=== PATIENT | female | born 1965 | race Caucasian/White ===

== ENCOUNTER 2023-09-01 02:53 | Emergency (ER) | payer BC, SELFPAY ==
[2023-09-01 03:00] VITALS: BP 117/96; PULSE 118; RESP 22; TEMP 36.6; O2SAT 100; BMI 27.4
--- NOTE | 2023-09-01 03:18 | ED_ITS ---
HPI - General Adult General Chief complaint: Shortness of Breath/Dyspnea Stated complaint: covid +, trouble breathing Time Seen by Provider: 09/01/23 03:02 Source: patient Mode of arrival: ambulatory Limitations: no limitations History of Present Illness HPI narrative: 58-year-old female presents to the emergency department for evaluation of worsening shortness of breath, weakness and vomiting in the setting of COVID. Patient reports that she initially became symptomatic achiness and cough with nausea 2 days ago. Positive COVID test, was given a prescription for Paxlovid yesterday that she has not yet started. She has not been able to hold down any nutrition today. Feels like she is getting weaker, starting to get confused. No hemoptysis, no productive cough. Does not think she has been running a fe tonny. She has had a single COVID vaccine and has had COVID once previously but no subsequent completion of the series or booster. No history of DVT or PE, no chest pain. Took Tylenol about 3 hours prior to arrival with no significant improvement in symptoms. No history of asthma or COPD. He is mostly concerned with feeling short of breath. Does not have a way to measure home oximetry. Does have a history of diabetes, has continued to take her medications, blood sugars running 120-125 today. No focal neurological changes, accompanied by significant other today. Past medical history notable for type 2 diabetes, hyperlipidemia. Home meds are metformin, Jardiance and atorvastatin. Nonsmoker. No pertinent travel. ROS is notable for the generalized, respiratory and GI symptoms as above. Also reports some sacroiliac area diffuse low back pain. Otherwise denies 12 system review of systems. Related Data Home Medications Medication Instructions Recorded Confirmed atorvastatin .ROUTE 09/01/23 empagliflozin .ROUTE 09/01/23 metformin 500 mg tablet 500 mg PO DAILY 09/01/23 09/01/23 Allergies Allergy/AdvReac Type Severity Reaction Status Date / Time No Known Drug Allergies Allergy Verified 09/01/23 03:03 [facility] Social History Smoking Status: Never smoker Non-prescribed substance use: denies use Exam Const: Vital Signs, click to edit/add: Vital Signs - 24 hr 09/01/23 03:00 09/01/23 03:20 09/01/23 04:35 Temperature 97.8 F 97.8 F Pulse Rate [Pulse Oximeter] 118 H 104 H Respiratory Rate 22 22 Blood Pressure [Ri ght Upper Arm] 117/96 H 126/65 Pulse Oximetry 100 100 100 Oxygen Delivery Me thod Room Air Room Air Documenting provider has reviewed patient's vital signs: yes Other: Retching, appears mildly ill. HENMT: Common normals: normocephalic Head and scalp: normocephalic Mouth: oral and palatal mucosa normal Throat: posterior oropharynx normal Eye: Common normals: conjunctivae normal General eye: normal appearance of both eyes Conjunctiva: conjunctiva(e) normal Neck & C-Spine: Common normals: full ROM and no lymphadenopathy Resp: Common normals: normal respiratory effort, no use of accessory muscles and clear to auscultation bilaterally Effort & inspection: able to speak in complete sentences Auscultation: clear to auscultation bilaterally Cardio: Common normals: regular rate, regular rhythm, S1 normal heart sound, S2 normal heart sound and no murmurs Rate: regular rate Rhythm: regular rhythm Heart sounds: S1 normal and S2 normal GI: Common normals: Normal to inspection, nondistended, normoactive bowel sounds present, soft to palpation, non-tender, no hepatosplenomegaly and no masses Palpation: soft and no hepatosplenomegaly : Common normals: no CVA tenderness Bladder/kidney exam: no CVA tenderness Back & Pelvis: Common normals: no CVA tenderness Other: No point bony tenderness of the lumbar spine. Mild SI and paraspinal muscle tenderness, nonfocal. Extremity: Common normals: normal to inspection and no pedal edema Other: Capillary refill is right around 2 seconds. Neuro: Speech: speech normal Motor exam: strength 5/5 throughout and no movement abnormalities noted Psych: Attitude: engaged Insight: insight good Judgement: judgment good Skin: Common normals: no rashes or lesions noted General skin exam: no rashes or lesions noted Course Course ED Course: Shortness of breath in the setting of COVID. Oxygen levels look good and there is no tachypnea. Breath sounds are nice and clear but I am concerned about the tachycardia. This could potentially be from cardiac process, pulmonary embolism or worsening respiratory process. The nausea vomiting does seem to be causing dehydration which could be contributing to tachycardia and overall weakness. I recommended placing an IV, basic labs including D-dimer, cardiac labs, electrolytes etc.. Will bolus 1 L of normal saline, give 4 mg of Zofran. No benefit to repeating her COVID test. No pulmonary findings. Will await D-dimer and determine if we should do a CT scan of the lungs rather than an x-ray. Will update patient once these findings are available Reevaluation(s) Time of Reevaluation #1: 04:11 Reevaluation #1: Patient feeling better after Zofran and 1 L of IV fluid. Labs suggestive of some lactic acidosis in the setting of use of metformin with acute illness and vomiting. I recommended a 2 L of IV fluid. D-dimer is somewhat elevated, recommend CT PA since she had sudden-onset shortness of breath, COVID and the lab findings. Await results. Time of Reevaluation #2: 05:48 Reevaluation #2: Review normal CT findings with patient. Discussed lactic acidosis, that severe dehydration and the pathophysiology that caused her subjective shortness of breath in the setting of her body's attempted electrolyte compensation. She is feeling much better. Because of electrolyte abnormalities, will finish 3 L of fluid, this time with lactated Ringer's to add some buffering. She is tolerating liquids with no difficulty now. I am confident that she can continue with this. I stressed the importance of her hold her metformin for the next 24 hours minimum. Instructions not to restart on Tuesday morning either unless she is eating and drinking well and continuing to feel improved. Drink lots of fluids today to help wash out the contrast in the setting of some early pre renal azotemia from her dehydration. She verbalizes understanding and agree ment. Discussed body aches, okay to use Tylenol and ibuprofen. Alarm symptoms reviewed that would warrant ED presentation. She verbalizes understanding and agreement. Vital Signs Vital signs: Initial Vital Signs Temperature 97.8 F 09/01/23 03:00 Temperature Source Temporal Artery Scan 09/01/23 03:00 Pulse Rate 118 H 09/01/23 03:00 Respiratory Rate 22 09/01/23 03:00 Blood Pressure 117/96 H 09/01/23 03:00 Blood Pressure Mean 103 09/01/23 03:00 Blood Pressure Position Sitting 09/01/23 03:00 Pulse Oximetry 100 09/01/23 03:00 Oxygen Delivery Method Room Air 09/01/23 03:00 Vital Signs Temperature 97.8 F 09/01/23 03:00 Pulse Rate 118 H 09/01/23 03:00 Respiratory Rate 22 09/01/23 03:00 Blood Pressure 117/96 H 09/01/23 03:00 Pulse Oximetry 100 09/01/23 03:00 Oxygen Delivery Method Room Air 09/01/23 03:00 Temperature 97.8 F 09/01/23 04:35 Pulse Rate 104 H 09/01/23 04:35 Respiratory Rate 22 09/01/23 04:35 Blood Pressure 126/65 09/01/23 04:35 Pulse Oximetry 100 09/01/23 04:35 Oxygen Delivery Method Room Air 09/01/23 04:35 Medications Administered Medications: Generic Name Dose Route Start Last Admin Trade Name Freq PRN Reason Stop Dose Admin Sodium Chloride 1,000 mls @ 1,000 mls/hr 09/01/23 03:16 09/01/23 04:00 0.9 % Sodium Chloride 1000 Ml IV 09/01/23 04:15 Infused .Q1H LISE Infusion Sodium Chloride 1,000 mls @ 1,000 mls/hr 09/01/23 03:56 09/01/23 05:18 0.9 % Sodium Chloride 1000 Ml IV 09/01/23 04:55 Infused .Q1H LISE Infusion Lactated Ringer's 1,000 mls @ 500 mls/hr 09/01/23 05:12 09/01/23 05:18 Lactated Ringers 1000 Ml IV 09/01/23 07:11 500 mls/hr .Q2H LISE Administration Ondansetron HCl 4 mg 09/01/23 03:15 09/01/23 03:22 Ondansetron 2 Mg/Ml Inj IVP 09/01/23 03:16 4 mg ONCE ONE Administration Medical Decision Making Lab Data Lab results reviewed: Yes I reviewed the patient's lab results Lab results narrative: Mild leukocytosis likely secondary to COVID. Mildly elevated D-dimer, could be suggestive of pulmonary embolism. Very low CO2 level with elevated lactate. In the setting of metformin use suspicious for lactic acidosis. Labs: Lab Results 09/01/23 Range/Units 03:20 WBC 11.21 H (4.50-11.00) K/uL RBC 5.37 H (4.00-5.20) m/uL Hgb 15.7 (12.0-16.0) gm/dL Hct 50.5 (33.0-51.0) % MCV 94 (80-100) fL MCH 29 (26-34) pg MCHC 31 L (32-36) gm/dL RDW Coeff of Corine 13.0 (11.5-15.5) % Plt Count 341 (140-440) K/uL Neut % (Auto) 78.5 H (42.0-72.0) % Lymph % (Auto) 15.2 L (20-44) % [place] % (Auto) 5.5 (0.0-11.0) % Eos % (Auto) 0.0 (0.0-7.0) % Baso % (Auto) 0.2 (0.0-3.0) % Neut # (Auto) 8.80 H (1.7-7.0) K/uL Lymph # (Auto) 1.70 (0.90-2.90) K/uL [place] # (Auto) 0.60 (0.00-0.90) K/UL Eos # (Auto) 0.00 (0.00-0.50) K/uL Baso # (Auto) 0.00 (0.00-0.30) K/uL Abs Immat Gran (auto) 0.10 (0.00-0.30) K/uL Imm/Tot Granulo (auto) 0.6 % D-Dimer Quant (PE/DVT) 0.92 H (0.00-0.50) ug/ml Sodium 135 (135-149) mmol/L Potassium 4.4 (3.6-5.1) mmol/L Chloride 102 (96-114) mmol/L Carbon Dioxide < 5 L* (20-32) mmol/L Anion Gap 28 H (7-15) mEq/L BUN 18 (7-30) mg/dL Creatinine 1.4 (0.5-1.5) mg/dL Estimated Creat Clear 35.49 Estimated GFR 44 ml/min Glucose 234 H (60-115) mg/dL Lactate 3.1 H (0.5-1.9) mmol/L Calcium 10.7 H (8.4-10.6) mg/dL Total Bilirubin 0.7 (0.1-1.5) mg/dL AST 27 (12-35) U/L ALT 24 (4-35) U/L Alkaline Phosphatase 110 (40-150) U/L C-Reactive Protein 4.6 H (0.5-1.0) mg/dL Total Protein 8.6 H (6.0-8.3) g/dL Albumin 5.2 H (3.3-5.0) g/dL Lipase 113 (23-300) U/L POC Troponin I 0.00 L (0.01-0.04) ng/ml Imaging Data CT scan - chest: Attestation: I have reviewed the pertinent imaging results. My impression: No infiltrates, no pulmonary embolism, no cardiac disease Radiologist's impression: IMPRESSION: 1. There is no indication of pulmonary embolus. 2. Lungs and pleural space appear normal. 3. Hiatal hernia and significant appearing thickening of the mid and distal 3rd of the esophagus. This is probably chronic reflux associated change though follow-up is recommended in the nonacute care setting ECG Data Attestation: I personally reviewed and interpreted this ECG as follows: Prior ECG tracings: not available for review Interpretation: Normal sinus rhythm. Normal axis. QRS is slightly prolonged with partial incomplete right bundle branch block. There are no features suggestive of ischemia however. Rate is around 105 at the time of EKG. No prior comparison available Discharge Plan Discharge Clinical Impression: Acute dehydration, COVID, Acute lactic acidosis Patient Disposition: Home w/ Parent or Adult Condition: Improved Instructions: Dehydration (ED) Additional Instructions: As we discussed, your shortness of breath was actually a process brought on by your body when it gets severely dehydrated. This is more common for someone on metformin. This shifts the dehydration into an electrolyte and acid-base problem. The solution is lots of fluids and then special electrolytes that help buffer the acid-base problem. The remainder of our workup did not show any other signs of severe infection, GI problems, blood clots or other significant abnormality. This is reassuring. I am glad that the Zofran also known as ondansetron medication was helpful for your nausea and vomiting. I will give you a prescription to continue this. You should take another dose at about 930 this morning. It is important that you do not take metformin for the next 24 hours. If you are feeling markedly better on Tuesday morning, you may restart the medication. If you are not markedly better, wait another 24 hours to restart. I would also like for you to hold her statin medication for a few days as well. As we discussed, I think the risk of Paxlovid outweighs the benefit for you. It will likely worsen dehydration, potential kidney issues and will cause more nausea. The benefit is small in your case and I think there is a larger potential for harm than help. I do not recommend that you start taking it. All of the fluids that you were given should help with most of your symptoms. The body aches and fatigue will take a few more days. If you start feeling severely short of breath, have persistent vomiting again, noticed decreased urination again or signs of other general worsening, please come back to the emergency room right away. Activity Level: Activity as Tolerated Discharge Diet: Regular Prescriptions: No Action metformin 500 mg tablet 500 mg PO DAILY empagliflozin [Jardiance] .ROUTE atorvastatin .ROUTE Follow Up/Referrals: Nalini Cobos MD [Primary Care Provider] - Stand Alone Forms: [employer] Info Instructions
[2023-09-01 03:20] VITALS: O2SAT 100
[2023-09-01] MEDS: ONDANSETRON 2 MG/ML inj 4 MG IVP (03:22)
[2023-09-01] MEDS: 0.9 % SODIUM CHLORIDE 1000 ml 1,000 ML IV ×2 (03:22→04:00)
[2023-09-01 03:27] LABS: Basophils Percent Auto 0.2 % (0.0-3.0); Hematocrit 50.5 % (33.0-51.0); Hemoglobin* 15.7 gm/dL (12.0-16.0); Immature Granulocytes Pct Auto 0.6 %; Lymphocytes Percent Auto 15.2 % (20-44); Mean Corpuscular HGB Conc 31 gm/dL (32-36); Mean Corpuscular Hemoglobin 29 pg (26-34); Mean Corpuscular Volume 94 fL (80-100); Monocytes Percent Auto 5.5 % (0.0-11.0); Neutrophils Percent Auto 78.5 % (42.0-72.0); Platelet Count* 341 K/uL (140-440); Red Blood Count 5.37 m/uL (4.00-5.20); White Blood Count* 11.21 K/uL (4.50-11.00)
[2023-09-01 03:34] LABS: Lactate* 3.1 mmol/L (0.5-1.9)
[2023-09-01 03:35] LABS: Slide Review Reflex No
[2023-09-01 03:47] LABS: Albumin* 5.2 g/dL (3.3-5.0); Chloride* 102 mmol/L (96-114); Potassium* 4.4 mmol/L (3.6-5.1); Sodium* 135 mmol/L (135-149)
[2023-09-01 03:49] LABS: Creatinine* 1.4 mg/dL (0.5-1.5); Est. Creatinine Clearance* 35.49; Estimated Glomerular Filt Rate 44 ml/min
[2023-09-01 03:50] LABS: Alanine Aminotransferase* 24 U/L (4-35); Alkaline Phosphatase* 110 U/L (40-150); Aspartate Amino Transferase* 27 U/L (12-35); Bilirubin Total* 0.7 mg/dL (0.1-1.5); Blood Urea Nitrogen* 18 mg/dL (7-30); Calcium* 10.7 mg/dL (8.4-10.6); Glucose* 234 mg/dL (60-115); Lipase* 113 U/L (23-300); Total Protein* 8.6 g/dL (6.0-8.3)
[2023-09-01 03:51] LABS: D Dimer Quantitative* 0.92 ug/ml (0.00-0.50)
[2023-09-01 03:53] LABS: C Reactive Protein* 4.6 mg/dL (0.5-1.0)
[2023-09-01 03:55] LABS: Anion Gap 28 mEq/L (7-15); Carbon Dioxide* < 5 mmol/L (20-32)
--- NOTE | 2023-09-01 03:57 | CRLHL7_ITS ---
For Patients: As a result of the Century Cures Act, medical imaging exams and procedure reports are released immediately into your electronic medical record. You may view this report before your referring provider. If you have questions, please contact your health care provider. INDICATION: Dyspnea. COVID. Positive D-dimer COMPARISON: None TECHNIQUE: : CT examination of the chest was performed with the uneventful intravenous administration of 95 cc of Isovue 370 while thin axial sections were obtained from above the apices of the lungs to the lung bases. Please note that all CT scans at this facility use dose modulation, iterative reconstruction, and/or weight-based dosing when appropriate to reduce radiation dose to as low as reasonably achievable. FINDINGS: : HEART and MEDIASTINUM: The heart size is normal. There is no mediastinal or hilar adenopathy or mass. There is no pericardial effusion. ESOPHAGUS: Hiatal hernia and significant appearing thickening the mid and distal 3rd of the esophagus. This is probably chronic reflux associated change but should be evaluated in the nonacute care setting PULMONARY ARTERIAL CIRCULATION: There is no visible intraluminal filling defect to suggest pulmonary embolus. LUNGS: The lungs show no focal consolidation or mass. The airways appear normal. PLEURAL SPACES: There is no pleural effusion, pneumothorax or pleural based mass. VISUALIZED UPPER ABDOMEN: Not well evaluated due to streak artifact and motion. OSSEOUS STRUCTURES: Age-appropriate appearance. No acute fracture or destructive process. TUBES and LINES: None. IMPRESSION: 1. There is no indication of pulmonary embolus. 2. Lungs and pleural space appear normal. 3. Hiatal hernia and significant appearing thickening of the mid and distal 3rd of the esophagus. This is probably chronic reflux associated change though follow-up is recommended in the nonacute care setting Please note that all CT scans at this facility use dose modulation, iterative reconstruction, and/or weight-based dosing when appropriate to reduce radiation dose to as low as reasonably achievable. Dictated by Ryan Mcneil MD @ 09/01/2023 5:36:33 AM (Electronically Signed)
[2023-09-01 04:35] VITALS: BP 126/65; PULSE 104; RESP 22; TEMP 36.6; O2SAT 100
[2023-09-01] MEDS: LACTATED RINGERS 1000 ML 1,000 ML 500 ML IV (05:18)
[2023-09-01 06:06] VITALS: BP 118/89; PULSE 108; RESP 18; O2SAT 100
== END 2023-09-01 06:33 | disposition home or self-care (01) ==
PROVIDERS: Emergency Provider Family Medicine; PCP Family Medicine
DX: U07.1 COVID-19 (principal); E87.21 Acute metabolic acidosis; E86.0 Dehydration
CPT/HCPCS: 36415; 71275; 80053; 83605; 83690; 84484; 85025; 85379; 86140; 93005; 94761; 95992; 96361; 96374; 99284; 99285; J2405; J7030; J7120; Q9967

== ENCOUNTER 2023-09-02 01:20 | Emergency (ER) | payer BC, SELFPAY ==
[2023-09-02 01:26] VITALS: BP 136/82; PULSE 104; RESP 26; TEMP 35.8; O2SAT 100; BMI 27.4
--- NOTE | 2023-09-02 01:36 | ED.GENADULT ---
HPI - General Adult General Chief complaint: Weakness Stated complaint: shortness of breath, dizzy Time Seen by Provider: 09/02/23 01:36 History of Present Illness HPI narrative: symptoms started Tuesday, was seen in ER yesterday with covid and dehydration. today feels worse, continues to feel very weak and fatigued with SOB. last had tylenol and zofran around 1999. has vomited 3X tonight. 58-year-old woman returning to the emergency department with diagnosis of COVID. Was seen yesterday. Second day of illness. Continues to feel weak. She has vomited 3 times this evening. Feels short of breath. In noted on triage is oxygenating 100% on room air. For abrupt dyspnea onset yesterday did receive a CTA chest. This was unremarkable. Diagnosed with lactic acidosis thought perpetuated by dehydration. Received IV hydration and told to hold metformin. Currently denies chest or abdominal pain. No dysuria. No fever. Says she would just like to fall asleep. Is not reporting any headache. Has been checking blood sugars regularly. Reports most recent and 120. Maintain that has been drinking well. Reports, verified with , having at least 80-100 oz of water today. Related Data Home Medications Medication Instructions Recorded Confirmed atorvastatin .Route 09/01/23 empagliflozin .Route 09/01/23 metformin 500 mg tablet 500 mg PO DAILY 09/01/23 09/02/23 Allergies Allergy/AdvReac Type Severity Reaction Status Date / Time No Known Drug Allergies Allergy Verified 09/01/23 03:03 Review of Systems Status of ROS: Reports: 6 or more systems reviewed and unremarkable except as noted in History and below PFSH PFS Social History Smoking Status: Never smoker Non-prescribed substance use: denies use Exam Narrative: Exam Narrative: Room smells quite ketotic. Breathless. Tachypneic. Labored. Seems anxious. Fatigued. Subtle slurring to her words. gcs 14. Cranial nerves 2-12 are intact. Pupils are 3 mm and equal and appropriately reactive. Moving all extremities without difficulty though does seem generally fatigued. She is able to move herself into a seated position. Lungs are clear. Heart is tachycardic in a regular rhythm. Abdomen is soft nontender. Skin with good turgor and without rash. She is well-perfused peripherally. Oropharynx is quite dry. Const: Vital Signs, click to edit/add: Vital Signs - 24 hr 09/02/23 01:26 09/02/23 01:48 09/02/23 02:53 Temperature 96.4 F L Pulse Rate [Pulse Oximeter] 104 H Respiratory Rate 26 H Blood Pressure [Ri ght Upper Arm] 136/82 136/74 Pulse Oximetry 100 100 Oxygen Delivery Me thod Room Air Room Air 09/02/23 03:55 09/02/23 05:22 09/02/23 06:00 Temperature 96.6 F L Pulse Rate [Pulse Oximeter] 96 Respiratory Rate 30 H 32 H Blood Pressure [Ri ght Upper Arm] 143/96 H Pulse Oximetry 100 Oxygen Delivery Me thod Room Air Documenting provider has reviewed patient's vital signs: yes Course Vital Signs Vital signs: Initial Vital Signs Temperature 96.4 F L 09/02/23 01:26 Temperature Source Temporal Artery Scan 09/02/23 01:26 Pulse Rate 104 H 09/02/23 01:26 Respiratory Rate 26 H 09/02/23 01:26 Blood Pressure 136/82 09/02/23 01:26 Blood Pressure Mean 100 09/02/23 01:26 Blood Pressure Position Sitting 09/02/23 01:26 Pulse Oximetry 100 09/02/23 01:26 Oxygen Delivery Method Room Air 09/02/23 01:26 Vital Signs Temperature 96.4 F L 09/02/23 01:26 Pulse Rate 104 H 09/02/23 01:26 Respiratory Rate 26 H 09/02/23 01:26 Blood Pressure 136/82 09/02/23 01:26 Pulse Oximetry 100 09/02/23 01:26 Oxygen Delivery Method Room Air 09/02/23 01:26 Temperature 96.6 F L 09/02/23 06:00 Pulse Rate 96 09/02/23 03:55 Respiratory Rate 32 H 09/02/23 05:22 Blood Pressure 143/96 H 09/02/23 03:55 Pulse Oximetry 100 09/02/23 03:55 Oxygen Delivery Method Room Air 09/02/23 03:55 Medications Administered Medications: Generic Name Dose Route Start Last Admin Trade Name Freq PRN Reason Stop Dose Admin Sodium Bicarbonate 125 meq/ 1,125 mls @ 150 mls/hr 09/02/23 06:15 09/02/23 06:45 Dextrose IV 150 mls/hr .[id number] LISE Administration Insulin Human (Reg)/Sodium Chloride 100 unit in 100 mls @ 6.5 mls/hr 09/02/23 06:45 09/02/23 07:08 Insulin Inf 100 Unit/100 Ml IVPB 6.5 unit/hr .[id number] LISE 6.5 mls/hr Administration Protocol 6.5 UNIT/HR Discontinued Medications Generic Name Dose Route Start Last Admin Trade Name [place] PRN Reason Stop Dose Admin Sodium Chloride 1,000 mls @ 1,000 mls/hr 09/02/23 01:48 09/02/23 03:40 0.9 % Sodium Chloride 1000 Ml IV 09/02/23 02:47 Infused .Q1H ONE Infusion Sodium Chloride 1,000 mls @ 1,000 mls/hr 09/02/23 02:57 09/02/23 03:41 0.9 % Sodium Chloride 1000 Ml IV 09/02/23 03:56 Infused .Q1H ONE Infusion Lactated Ringer's 1,000 mls @ 1,000 mls/hr 09/02/23 04:47 09/02/23 05:26 Lactated Ringers 1000 Ml IV 09/02/23 05:46 1,000 mls/hr .Q1H ONE Administration Lorazepam 0.5 mg 09/02/23 01:49 09/02/23 02:01 Lorazepam 2 Mg/Ml Inj IVP 09/02/23 01:50 0.5 mg ONCE ONE Administration Sodium Bicarbonate 50 meq 09/02/23 04:47 09/02/23 05:26 Sodium Bicarbonate 50 Meq/50ml Syringe IVP 09/02/23 04:48 50 meq ONCE ONE Administration Medical Decision Making MDM Narrative Medical decision making narrative: Will initiate IV hydration initially with normal saline. Surely is ketotic. Does have underlying diabetes. Look for infectious etiology here other than COVID. I would presume at this point is acidotic. White count is elevated since yesterday to little over 15,000. Lactate is improved. Venous blood gases obtained now today with a pH of 6.8 PCO to rather low at 17 anion gap. Will be checking blood cultures. Sepsis or bacteremia is certainly possible but unclear source. Does meet SIRS criteria. By my read chest x-ray was without evidence of infiltrate. No pneumothorax. With this degree of acidosis will also be monitored on cardiac cath technician. Pending remainder of labs. Has demonstrated herself to be rather weak nearly falling when getting up to use restroom. Respiratory rate is still quite elevated. Following 2 L normal saline rechecking venous blood gases. They are essentially the same however bicarb is extremely low now. Lactate is slightly improved. Changing to LR and temporizing with bolus of bicarb. Perhaps there is some hydrocephalus or some other intracerebral process that needs to be evaluated; driving this respiratory effort. Will be sending for head CT. Urinalysis with 4+ ketones as expected and 2+ glucosuria. Also 2+ protein and blood but no findings otherwise of infection CT head seems to have rather small CSF spaces by my read without evidence of herniation. Radiology notes head CT to be unremarkable. And managed to talk with ICU attending and Nephrology with Michael. Also concerned with degree of acidosis and on board with sodium bicarbonate administration. Would recommend further initiating bicarb drip. This will be done. MUDPILES considered. Tox screens are still pending. Concern expressed that might need a round of dialysis. Able to locate a bed with [facility] and spoke with Dr. Schwartz. Her suspicion is that GERD NC is what has contributed to this acidosis. In addition she would recommend initiating insulin drip. Lab recheck and anticipating transport to [facility] Lab Data Lab results reviewed: Yes I reviewed the patient's lab results Labs: Lab Results 09/02/23 09/02/23 09/02/23 Range/Units 02:00 04:00 04:06 WBC 15.21 H (4.50-11.00) K/uL RBC 5.31 H (4.00-5.20) m/uL Hgb 15.5 (12.0-16.0) gm/dL Hct 50.3 (33.0-51.0) % MCV 95 (80-100) fL MCH 29 (26-34) pg MCHC 31 L (32-36) gm/dL RDW Coeff of Corine 13.4 (11.5-15.5) % Plt Count 351 (140-440) K/uL Neut % (Auto) 78.1 H (42.0-72.0) % Lymph % (Auto) 11.3 L (20-44) % [place] % (Auto) 5.4 (0.0-11.0) % Eos % (Auto) 0.1 (0.0-7.0) % Baso % (Auto) 0.1 (0.0-3.0) % Neut # (Auto) 11.90 H (1.7-7.0) K/uL Lymph # (Auto) 1.70 (0.90-2.90) K/uL [place] # (Auto) 0.80 (0.00-0.90) K/UL Eos # (Auto) 0.00 (0.00-0.50) K/uL Baso # (Auto) 0.00 (0.00-0.30) K/uL Abs Immat Gran (auto) 0.80 H (0.00-0.30) K/uL Imm/Tot Granulo (auto) 5.0 % Diff Slide Review Acceptable Review (Acceptable) VBG pH 6.838 L* (7.32-7.43) VBG pCO2 17 L* (40-50) mmHG VBG pO2 47.2 H (25-47) mmHG VBG HCO3 3 L (21-28) mmol/L Sodium 131 L (135-149) mmol/L Potassium 4.8 (3.6-5.1) mmol/L Chloride 103 (96-114) mmol/L Carbon Dioxide < 5 L* (20-32) mmol/L Anion Gap 23 H (7-15) mEq/L BUN 15 (7-30) mg/dL Creatinine 1.1 (0.5-1.5) mg/dL Estimated Creat Clear 45.17 Estimated GFR 59 ml/min Glucose 207 H (60-115) mg/dL Lactate 2.1 H (0.5-1.9) mmol/L Calcium 9.4 (8.4-10.6) mg/dL Total Bilirubin (0.1-1.5) mg/dL Direct Bilirubin (0.0-0.5) mg/dL AST (12-35) U/L ALT (4-35) U/L Alkaline Phosphatase (40-150) U/L Total Creatine Kinase (41-117) U/L Total Protein (6.0-8.3) g/dL Albumin (3.3-5.0) g/dL Urine Color Yellow (Yellow) Urine Appearance Cloudy A (Clear) Urine pH 5.0 (5.0-8.5) Ur Specific [place] 1.025 (1.000-1.030) Urine Protein 2+ A (Negative) Urine Glucose (UA) 2+ A (Negative) Urine Ketones 4+ A (Negative) Urine Blood 2+ A (Negative) Urine Nitrite Negative (Negative) Urine Bilirubin Negative (Negative) Urine Urobilinogen 0.2 (0.2-1.0) Ur Leukocyte Esterase Negative (Negative) Urine RBC 0-2 (0-2) Urine WBC 5-10 A (0-5) Ur Squamous Epith Cells Moderate A (None-Few) Urine Bacteria Few A (None) Fine Granular Casts Moderate A (None) Salicylates (1.0-10) mg/dL Urine Opiates Screen Negative (Negative) Ur Oxycodone Screen Negative (Negative) Urine Methadone Screen Negative (Negative) Acetaminophen (10.0-30.0) ug/mL Ur Barbiturates Screen Negative (Negative) U Tricyclic Antidepress Negative (Negative) Ur Phencyclidine Scrn Negative (Negative) Ur Amphetamines Screen Negative (Negative) U Methamphetamines Scrn Negative (Negative) U Benzodiazepines Scrn Negative (Negative) Urine Cocaine Screen Negative (Negative) U Marijuana (THC) Screen Negative (Negative) Ur Drug Screen Comment See Note Ethyl Alcohol (0.01-0.03) % Lab Acknowledgement 09/02/23 09/02/23 09/02/23 Range/Units 04:15 04:15 06:07 WBC (4.50-11.00) K/uL RBC (4.00-5.20) m/uL Hgb (12.0-16.0) gm/dL Hct (33.0-51.0) % MCV (80-100) fL MCH (26-34) pg MCHC (32-36) gm/dL RDW Coeff of Corine (11.5-15.5) % Plt Count (140-440) K/uL Neut % (Auto) (42.0-72.0) % Lymph % (Auto) (20-44) % [place] % (Auto) (0.0-11.0) % Eos % (Auto) (0.0-7.0) % Baso % (Auto) (0.0-3.0) % Neut # (Auto) (1.7-7.0) K/uL Lymph # (Auto) (0.90-2.90) K/uL [place] # (Auto) (0.00-0.90) K/UL Eos # (Auto) (0.00-0.50) K/uL Baso # (Auto) (0.00-0.30) K/uL Abs Immat Gran (auto) (0.00-0.30) K/uL Imm/Tot Granulo (auto) % Diff Slide Review (Acceptable) VBG pH < 6.818 L* (7.32-7.43) VBG pCO2 < 15 L* (40-50) mmHG VBG pO2 66.6 H (25-47) mmHG VBG HCO3 Not Reportable (21-28) mmol/L Sodium 133 L (135-149) mmol/L Potassium 4.6 (3.6-5.1) mmol/L Chloride 109 (96-114) mmol/L Carbon Dioxide < 5 L* (20-32) mmol/L Anion Gap 19 H (7-15) mEq/L BUN 14 (7-30) mg/dL Creatinine 0.9 (0.5-1.5) mg/dL Estimated Creat Clear 55.20 Estimated GFR 75 ml/min Glucose 194 H (60-115) mg/dL Lactate 2.0 H (0.5-1.9) mmol/L Calcium 8.4 (8.4-10.6) mg/dL Total Bilirubin 0.6 (0.1-1.5) mg/dL Direct Bilirubin 0.4 (0.0-0.5) mg/dL AST 30 (12-35) U/L ALT 19 (4-35) U/L Alkaline Phosphatase 87 (40-150) U/L Total Creatine Kinase 48 (41-117) U/L Total Protein 7.2 (6.0-8.3) g/dL Albumin 4.3 (3.3-5.0) g/dL Urine Color (Yellow) Urine Appearance (Clear) Urine pH (5.0-8.5) Ur Specific [place] (1.000-1.030) Urine Protein (Negative) Urine Glucose (UA) (Negative) Urine Ketones (Negative) Urine Blood (Negative) Urine Nitrite (Negative) Urine Bilirubin (Negative) Urine Urobilinogen (0.2-1.0) Ur Leukocyte Esterase (Negative) Urine RBC (0-2) Urine WBC (0-5) Ur Squamous Epith Cells (None-Few) Urine Bacteria (None) Fine Granular Casts (None) Salicylates < 1.0 L (1.0-10) mg/dL Urine Opiates Screen (Negative) Ur Oxycodone Screen (Negative) Urine Methadone Screen (Negative) Acetaminophen < 10.0 L (10.0-30.0) ug/mL Ur Barbiturates Screen (Negative) U Tricyclic Antidepress (Negative) Ur Phencyclidine Scrn (Negative) Ur Amphetamines Screen (Negative) U Methamphetamines Scrn (Negative) U Benzodiazepines Scrn (Negative) Urine Cocaine Screen (Negative) U Marijuana (THC) Screen (Negative) Ur Drug Screen Comment Ethyl Alcohol < 0.01 L (0.01-0.03) % Lab Acknowledgement Test Added Test Added Test Added 09/02/23 Range/Units 06:08 WBC (4.50-11.00) K/uL RBC (4.00-5.20) m/uL Hgb (12.0-16.0) gm/dL Hct (33.0-51.0) % MCV (80-100) fL MCH (26-34) pg MCHC (32-36) gm/dL RDW Coeff of Corine (11.5-15.5) % Plt Count (140-440) K/uL Neut % (Auto) (42.0-72.0) % Lymph % (Auto) (20-44) % [place] % (Auto) (0.0-11.0) % Eos % (Auto) (0.0-7.0) % Baso % (Auto) (0.0-3.0) % Neut # (Auto) (1.7-7.0) K/uL Lymph # (Auto) (0.90-2.90) K/uL [place] # (Auto) (0.00-0.90) K/UL Eos # (Auto) (0.00-0.50) K/uL Baso # (Auto) (0.00-0.30) K/uL Abs Immat Gran (auto) (0.00-0.30) K/uL Imm/Tot Granulo (auto) % Diff Slide Review (Acceptable) VBG pH (7.32-7.43) VBG pCO2 (40-50) mmHG VBG pO2 (25-47) mmHG VBG HCO3 (21-28) mmol/L Sodium (135-149) mmol/L Potassium (3.6-5.1) mmol/L Chloride (96-114) mmol/L Carbon Dioxide (20-32) mmol/L Anion Gap (7-15) mEq/L BUN (7-30) mg/dL Creatinine (0.5-1.5) mg/dL Estimated Creat Clear Estimated GFR ml/min Glucose (60-115) mg/dL Lactate (0.5-1.9) mmol/L Calcium (8.4-10.6) mg/dL Total Bilirubin (0.1-1.5) mg/dL Direct Bilirubin (0.0-0.5) mg/dL AST (12-35) U/L ALT (4-35) U/L Alkaline Phosphatase (40-150) U/L Total Creatine Kinase (41-117) U/L Total Protein (6.0-8.3) g/dL Albumin (3.3-5.0) g/dL Urine Color (Yellow) Urine Appearance (Clear) Urine pH (5.0-8.5) Ur Specific [place] (1.000-1.030) Urine Protein (Negative) Urine Glucose (UA) (Negative) Urine Ketones (Negative) Urine Blood (Negative) Urine Nitrite (Negative) Urine Bilirubin (Negative) Urine Urobilinogen (0.2-1.0) Ur Leukocyte Esterase (Negative) Urine RBC (0-2) Urine WBC (0-5) Ur Squamous Epith Cells (None-Few) Urine Bacteria (None) Fine Granular Casts (None) Salicylates (1.0-10) mg/dL Urine Opiates Screen (Negative) Ur Oxycodone Screen (Negative) Urine Methadone Screen (Negative) Acetaminophen (10.0-30.0) ug/mL Ur Barbiturates Screen (Negative) U Tricyclic Antidepress (Negative) Ur Phencyclidine Scrn (Negative) Ur Amphetamines Screen (Negative) U Methamphetamines Scrn (Negative) U Benzodiazepines Scrn (Negative) Urine Cocaine Screen (Negative) U Marijuana (THC) Screen (Negative) Ur Drug Screen Comment Ethyl Alcohol (0.01-0.03) % Lab Acknowledgement Test Added Critical Care Time Critical Care Time Critical Care Time: Yes Attestation: The patient required my highest level preparedness to intervene emergently and I personally spent this critical care time directly and personally managing the patient. This critical care time included: Obtaining a history; Examining the patient; Pulse oximetry; Ordering and reviewing of studies; Arranging urgent treatment with development of a management plan; Evaluation of patients response to treatment; Frequent reassessment discussions with other providers. This critical care time was performed to assess and manage the high probability of imminent life-threatening deterioration that could result in multiorgan failure. It was exclusive of separate billable procedures and treating other patients and teaching time. Total Critical Care Time in Minutes: 120 Discharge Plan Discharge Clinical Impression: Altered mental status, Acidosis, metabolic, Dehydration Patient Disposition: [facility] Condition: Guarded Prescriptions: No Action metformin 500 mg tablet 500 mg PO DAILY Hold Instructions: Order Change empagliflozin [Jardiance] .Route atorvastatin .Route Hold Instructions: Order Change Stand Alone Forms: [employer]ven Info Instructions
[2023-09-02 01:48] VITALS: O2SAT 100
[2023-09-02] MEDS: LORazepam 2 MG/ML inj 0.5 MG IVP (02:01)
[2023-09-02] MEDS: 0.9 % SODIUM CHLORIDE 1000 ml 1,000 ML IV ×2 (02:01→03:41)
[2023-09-02 02:12] LABS: HCO3 VBG 3 mmol/L (21-28); PO2 VBG 47.2 mmHG (25-47)
[2023-09-02 02:13] LABS: Basophils Percent Auto 0.1 % (0.0-3.0); Eosinophils Percent Auto 0.1 % (0.0-7.0); Hematocrit 50.3 % (33.0-51.0); Hemoglobin* 15.5 gm/dL (12.0-16.0); Lymphocytes Percent Auto 11.3 % (20-44); Mean Corpuscular HGB Conc 31 gm/dL (32-36); Mean Corpuscular Hemoglobin 29 pg (26-34); Mean Corpuscular Volume 95 fL (80-100); Monocytes Percent Auto 5.4 % (0.0-11.0); Neutrophils Percent Auto 78.1 % (42.0-72.0); Platelet Count* 351 K/uL (140-440); RDW Coefficient of Variation % 13.4 % (11.5-15.5); Red Blood Count 5.31 m/uL (4.00-5.20); White Blood Count* 15.21 K/uL (4.50-11.00)
[2023-09-02 02:25] LABS: Lactate* 2.1 mmol/L (0.5-1.9)
[2023-09-02 02:26] LABS: Chloride* 103 mmol/L (96-114)
[2023-09-02 02:27] LABS: PCO2 VBG 17 mmHG (40-50); Potassium* 4.8 mmol/L (3.6-5.1); Sodium* 131 mmol/L (135-149); pH VBG 6.838 (7.32-7.43)
[2023-09-02 02:29] LABS: Creatinine* 1.1 mg/dL (0.5-1.5); Est. Creatinine Clearance* 45.17; Estimated Glomerular Filt Rate 59 ml/min
--- NOTE | 2023-09-02 02:29 | PC.NURSE ---
Labs as noted. MD notified.
[2023-09-02 02:30] LABS: Blood Urea Nitrogen* 15 mg/dL (7-30); Calcium* 9.4 mg/dL (8.4-10.6); Glucose* 207 mg/dL (60-115)
--- NOTE | 2023-09-02 02:32 | CRLHL7_ITS ---
For Patients: As a result of the Century Cures Act, medical imaging exams and procedure reports are released immediately into your electronic medical record. You may view this report before your referring provider. If you have questions, please contact your health care provider. INDICATION: Dyspnea. TECHNIQUE: Chest 1 view. COMPARISON: CT PE chest 09/01/2023. FINDINGS: Cardiovascular and mediastinum: Heart size and vasculature are normal in caliber and appearance. Lungs and pleural spaces: Lungs are clear. No sign of infiltrate or mass. No sign of pleural effusion. No pneumothorax. Bones and soft tissues: No significant findings. IMPRESSION: Unremarkable chest. Dictated by Marquez Meng MD @ 09/02/2023 3:48:57 AM (Electronically Signed)
[2023-09-02 02:38] LABS: Anion Gap 23 mEq/L (7-15)
[2023-09-02 02:44] LABS: Carbon Dioxide* < 5 mmol/L (20-32)
[2023-09-02 02:53] VITALS: BP 136/74
[2023-09-02 03:55] VITALS: BP 143/96; PULSE 96; RESP 30; O2SAT 100
[2023-09-02 04:28] LABS: PO2 VBG 66.6 mmHG (25-47)
[2023-09-02 04:33] LABS: PCO2 VBG < 15 mmHG (40-50); pH VBG < 6.818 (7.32-7.43)
--- NOTE | 2023-09-02 04:35 | PC.NURSE ---
repeat labs done-MD with results. urine was sent
[2023-09-02 04:42] LABS: Appearance Urine Cloudy (Clear); Bilirubin Urine Negative (Negative); Blood Urine 2+ (Negative); Color Urine Yellow (Yellow); Glucose Urine 2+ (Negative); Ketones Urine 4+ (Negative); Leukocyte Esterase Urine Negative (Negative); Nitrite Urine Negative (Negative); Protein Urine 2+ (Negative); Specific Gravity Urine 1.025 (1.000-1.030); Urobilinogen Urine 0.2 (0.2-1.0)
--- NOTE | 2023-09-02 04:43 | CRLHL7_ITS ---
For Patients: As a result of the Century Cures Act, medical imaging exams and procedure reports are released immediately into your electronic medical record. You may view this report before your referring provider. If you have questions, please contact your health care provider. INDICATION: Altered mental status COMPARISON: None TECHNIQUE: CT examination of the head was performed as axial sections without intravenous contrast. Images were obtained from the vertex of the skull through the skull base. Please note that all CT scans at this facility use dose modulation, iterative reconstruction, and/or weight-based dosing when appropriate to reduce radiation dose to as low as reasonably achievable. FINDINGS: The brain shows no sign of mass lesion, mass effect, hemorrhage, or edema. The ventricles and sulci are normal in appearance for the patient`s age. The visualized portions of the orbits are normal in appearance. The osseous structures are normal in their appearance with no sign of abnormality in the skull base or calvarium. IMPRESSION: Normal unenhanced head CT. Please note that all CT scans at this facility use dose modulation, iterative reconstruction, and/or weight-based dosing when appropriate to reduce radiation dose to as low as reasonably achievable. Dictated by Ryan Mcneil MD @ 09/02/2023 5:29:04 AM (Electronically Signed)
--- NOTE | 2023-09-02 04:49 | PC.NURSE ---
Pt continues to be tachypneic same as on arrival. Pt has some foggy speech same as when she came in. Asked again if she had taken a sleeping pill. says she doesn't take any.
--- NOTE | 2023-09-02 04:56 | PC.NURSE ---
Pt disconnect from all monitors and transferred to CT in bed.
[2023-09-02 04:58] LABS: Chloride* 109 mmol/L (96-114)
[2023-09-02 04:59] LABS: Albumin* 4.3 g/dL (3.3-5.0); Potassium* 4.6 mmol/L (3.6-5.1); Sodium* 133 mmol/L (135-149)
[2023-09-02 05:02] LABS: Alkaline Phosphatase* 87 U/L (40-150); Aspartate Amino Transferase* 30 U/L (12-35); Bilirubin Direct* 0.4 mg/dL (0.0-0.5); Bilirubin Total* 0.6 mg/dL (0.1-1.5); Blood Urea Nitrogen* 14 mg/dL (7-30); Creatine Kinase* 48 U/L (41-117); Creatinine* 0.9 mg/dL (0.5-1.5); Estimated Glomerular Filt Rate 75 ml/min; Glucose* 194 mg/dL (60-115); Total Protein* 7.2 g/dL (6.0-8.3)
[2023-09-02 05:03] LABS: Alanine Aminotransferase* 19 U/L (4-35); Calcium* 8.4 mg/dL (8.4-10.6)
[2023-09-02 05:04] LABS: Anion Gap 19 mEq/L (7-15)
[2023-09-02 05:05] LABS: Carbon Dioxide* < 5 mmol/L (20-32)
[2023-09-02 05:18] LABS: Bacteria Urine Few; Fine Granular Casts Urine Moderate; RBC Urine 0-2 (0-2); Squamous Epithelial Cell Urine Moderate (None-Few)
[2023-09-02 05:22] VITALS: RESP 32
[2023-09-02] MEDS: LACTATED RINGERS 1000 ML 1,000 ML IV (05:26)
[2023-09-02] MEDS: SODIUM BICARBONATE 50 MEQ/50ML SYRINGE IVP (05:26)
--- NOTE | 2023-09-02 05:31 | PC.NURSE ---
at with some parliamentary CT results.
--- NOTE | 2023-09-02 05:48 | PC.NURSE ---
Pt more awake and more verbal. All cares explained including tx and ICU availabilty
[2023-09-02 06:00] VITALS: TEMP 35.9
[2023-09-02 06:09] LABS: Slide Review Reflex Yes
[2023-09-02 06:10] LABS: Slide Review Acceptable Review (Acceptable)
--- NOTE | 2023-09-02 06:11 | PC.NURSE ---
Pt up to BSC with assistance with assistance. Return [place] bed with great amounts of assistance. Unable to reposition self in bed and laying side ways. Labs adde an they were notifeid of this.
[2023-09-02 06:48] LABS: Amphetamine Screen Urine Negative (Negative); Barbiturate Screen Urine Negative (Negative); Benzodiazepines Screen Urine Negative (Negative); Cannabinoid Screen Urine Negative (Negative); Cocaine Screen Urine Negative (Negative); Methadone Screen Urine Negative (Negative); Methamphetamines Screen Urine Negative (Negative); Opiate Screen Urine Negative (Negative); Oxycodone Screen Urine Negative (Negative); Phencyclidine Screen Urine Negative (Negative); Tricyclic Antidepressant Urine Negative (Negative)
[2023-09-02 07:04] LABS: Acetaminophen* < 10.0 ug/mL (10.0-30.0); Ethanol* < 0.01 % (0.01-0.03); Salicylate* < 1.0 mg/dL (1.0-10)
[2023-09-02] MEDS: INSULIN INF 100 UNIT/100 ML 100 UNIT/100 ML BAG 6.5 UNIT IVPB (07:08)
--- NOTE | 2023-09-02 07:15 | PC.NURSE ---
Report given to Tommie Calderón [place] ICU. 0700 repeat labs done and then insulin gtt hung-is already infusing.
--- NOTE | 2023-09-02 07:31 | PC.NURSE ---
patient departed via EMS, all belongings sent with patient. report given to [facility] accepting RN.
[2023-09-02 08:16] LABS: Chloride* 107 mmol/L (96-114); Potassium* 4.6 mmol/L (3.6-5.1); Sodium* 131 mmol/L (135-149)
[2023-09-02 08:19] LABS: Blood Urea Nitrogen* 14 mg/dL (7-30); Calcium* 8.2 mg/dL (8.4-10.6); Creatinine* 0.9 mg/dL (0.5-1.5); Estimated Glomerular Filt Rate 75 ml/min; Glucose* 211 mg/dL (60-115)
[2023-09-02 08:20] LABS: Anion Gap 19 mEq/L (7-15); Carbon Dioxide* < 5 mmol/L (20-32)
== END 2023-09-02 07:33 | disposition short-term general hospital (02) ==
PROVIDERS: Emergency Provider Family Medicine
DX: R41.82 Altered mental status, unspecified (principal); E87.20 Acidosis, unspecified; E86.0 Dehydration
CPT/HCPCS: 36415; 70450; 71045; 80048; 80076; 80143; 80179; 80306; 81001; 82077; 82550; 82803; 83605; 85025; 87040; 87086; 94761; 95992; 96374; 96375; 99284; 99291; 99292; J2060; J3590; J7030; J7070; J7120

== ENCOUNTER 2023-09-02 07:20 | Outpatient (CLI) | payer BC, SELFPAY | END 2023-09-02 07:21 | disposition home or self-care (01) | LOC: AMB 09-05 08:34 | PROVIDERS: Visit Provider Family Medicine | DX: U07.1 COVID-19 (principal); R06.09 Other forms of dyspnea | CPT/HCPCS: A0425; A0434 ==